=== PATIENT | female | born 1930 | race Caucasian/White ===

== ENCOUNTER 2016-05-23 14:03 | Outpatient (CLI) ==
[2016-05-23 14:12] LABS: BILIRUBIN,URINE Negative (NEGATIVE); KETONES,URINE Negative (NEGATIVE); LEUKOCYTE ESTERASE ,URINE Negative (NEGATIVE); NITRITE,URINE Negative (NEGATIVE); PROTEIN,URINE Negative (NEGATIVE); URINE, BLOOD Negative (NEGATIVE)
[2016-05-23 14:18] LABS: ADD URINE MICROSCOPIC NO
== END 2016-05-23 14:04 | disposition home or self-care (01) ==
LOC: NONPT 14:03
PROVIDERS: ATTEND Family Medicine
DX: R41.0 Disorientation, unspecified (principal)
CPT/HCPCS: 81001

== ENCOUNTER 2016-09-05 10:38 | Outpatient (CLI) ==
[2016-09-05 10:50] LABS: BILIRUBIN,URINE Negative (NEGATIVE); KETONES,URINE Negative (NEGATIVE); LEUKOCYTE ESTERASE ,URINE Negative (NEGATIVE); NITRITE,URINE Negative (NEGATIVE); PROTEIN,URINE Negative (NEGATIVE); URINE, BLOOD Negative (NEGATIVE)
[2016-09-05 10:52] LABS: ADD URINE MICROSCOPIC NO
== END 2016-09-05 10:39 | disposition home or self-care (01) ==
LOC: NONPT 10:38
PROVIDERS: ATTEND Family Medicine
DX: R41.0 Disorientation, unspecified (principal)
CPT/HCPCS: 81001

== ENCOUNTER 2017-04-25 18:30 | Inpatient (IN) ==
[2017-04-25] MEDS ORDERED: DUONEB NEB STA (19:17)
[2017-04-25] MEDS ORDERED: DECADRON 4 MG/ML SDV IM STA (19:17)
--- NOTE | 2017-04-25 19:45 | ED.PDOC ---
General ED Provider: Dr. YENNIFER CARDOZA Chief Complaint: Non-specific Complaint Stated Complaint: Been coughing, congested, sinus drainage, not able get sputum, . Time Seen by Physician: 19:43 Mode of Arrival: Stretcher Information Source: Assisted, EMT Primary Care Provider: ALFONZO MEJIA Nursing and Triage Documentation Reviewed and Agree: Yes Reviewed sepsis parameters & appropriate labs ordered?: No System Inflammatory Response Syndrome: Not Applicable Sepsis Protocol: For patient's 13 years and over: Temp is 96.8 and below OR 101 and greater Pulse >90 BPM Resp >20/minute Acutely Altered Mental Status Are patient's symptoms suggestive of a new infection, such as: -Pneumonia -Skin, Soft Tissue -Endocarditis -UTI -Bone, Joint Infection -Implantable Device -Acute Abdominal Infection -Wound Infection -Meningitis -Blood Stream Catheter Infection -Unknown Respiratory Complaint Exam - Respiratory Complaint/Exam Symptoms Are: Still present Timing: Constant Initial Severity: Mild Current Severity: Mild Location: Chest Character: Reports: Non-productive cough Aggravating: Reports: URI Alleviating: Reports: None Associated Signs and Symptoms: Reports: URI, Nasal congestion, Sinus discomfort. Denies: Rapid breathing, Dyspnea, Fever, Chills, Chest pain, Pleuritic chest pain, Wheezing, Hemoptysis, Dizziness, Calf pain, Calf swelling , Edema, Hoarseness, Vomiting, Sore throat, Weight loss, Decreased oral intake, Increased thirst, Increased appetite, Increased urination History of Healthcare-Acquired Pneumonia: Lives at intermediate Related Surgical History: Reports: None Pulmonary Embolism Risk Factors: None Cardiac Risk Factors: Reports: None Pseudomonas Risk Factors: Reports: None Tuberculosis Risk Factors: Reports: None Status Asthmaticus Risk Factors: Reports: None Home Oxygen Use: No Recent Stress Test: No Recent Echo/LV Function: No Current Antibiotic Use: No Current Asthma Medication Use: No Respiratory Distress: None Inadequate Respiratory Effort: No Dysphagia Present: No Stridor Present: No JVD Present: No Accessory Muscle Use: No Retractions: Not Present Diminished Breath Sounds: Yes Grunting Respirations: No Kussmaul Respirations: No Differential Diagnoses: Pneumonia, Bronchitis, Influenza Review of Systems - Review Of Systems Constitutional: Reports: Malaise, Weakness Eyes: Reports: No symptoms Ears, Nose, Mouth, Throat: Reports: Nose discharge Respiratory: Reports: Cough Cardiac: Reports: No symptoms GI: Reports: No symptoms : Reports: No symptoms Musculoskeletal: Reports: No symptoms Skin: Reports: No symptoms Neurological: Reports: No symptoms Endocrine: Reports: No symptoms Hematologic/Lymphatic: Reports: No symptoms All Other Systems: Reviewed and Negative Past Medical History - Past Medical History Previously Healthy: Yes Endocrine: Reports: None Cardiovascular: Reports: None Respiratory: Reports: None Hematological: Reports: None Gastrointestinal: Reports: None Genitourinary: Reports: CKD Neuro/Psych: Reports: Depression, Dementia Musculoskeletal: Reports: None Cancer: Reports: None Last Menstrual Period: menopause - Surgical History General Surgical History: Reports: None - Family History Family History: Reports: None - Social History Smoking Status: Unknown if ever smoked Hx Substance Use: No Alcohol Screening: None Physical Exam - Physical Exam Appearance: Ill-appearing Ill-appearing: Mild Eyes: MIKEY, EOMI, Conjunctiva clear ENT: Ears normal, Nose normal, Oropharynx normal Respiratory: Breath sounds diminished, Crackles Cardiovascular: RRR, Pulses normal, No rub, No murmur GI/: Soft, Nontender, No masses, Bowel sounds normal, No Organomegaly Musculoskeletal: Normal strength, ROM intact, No edema, No calf tenderness Skin: Warm, Dry, Normal color Neurological: Alert to verbal Psychiatric: Anxious Interpretation - Radiology Interpretation Radiology Interpretation By: Radiologist Radiology Results: Positive Exam Interpreted: CT Scan Critical Care Note - Critical Care Note Total Time (mins): 30 Course - Course Hematology/Chemistry: 04/25/17 19:30 04/25/17 19:30 Orders, Labs, Meds: Lab Review 04/25/17 04/25/17 04/25/17 19:25 19:30 19:30 WBC 6.74 RBC 4.79 Hgb 13.7 Hct 41.0 MCV 85.6 MCH 28.6 MCHC 33.4 RDW Coeff of Lien 13.9 Plt Count 200 Immature Gran % (Auto) 0.4 Neut % (Auto) 62.5 Lymph % (Auto) 27.0 [place] % (Auto) 8.8 Eos % (Auto) 0.6 Baso % (Auto) 0.7 Immature Gran # (Auto) 0.0 Neut # (Auto) 4.2 Lymph # (Auto) 1.8 [place] # (Auto) 0.6 Eos # (Auto) 0.0 Baso # (Auto) 0.1 Sodium 139 Potassium 4.2 Chloride 108 H Carbon Dioxide 19 L Anion Gap 16.2 BUN 22 H Creatinine 0.83 Estimated GFR (MDRD) 65.00 BUN/Creatinine Ratio 26.50 Glucose 120 H Calcium 8.7 Total Bilirubin 0.4 AST 18 ALT 11 L Alkaline Phosphatase 55 Total Protein 6.5 Albumin 3.2 L Globulin 3.3 Albumin/Globulin Ratio 0.97 Influ A Molecular Assay Negative by naat Influ B Molecular Assay Negative by naat Orders Category Date Time Status NEBULIZER TREATMENT Stat CARDIO 04/25/17 19:17 Completed CBC W/ AUTO DIFF Stat LAB 04/25/17 19:30 Completed COMPREHENSIVE METABOLIC PANEL Stat LAB 04/25/17 19:30 Completed FLU A/B MOLECULAR Stat LAB 04/25/17 19:25 Completed Dexamethasone 4 mg/ml Inj [Decadron 4 mg/ml Sdv] MEDS 04/25/17 19:17 Discontinued 4 mg IM ONCE STA Ipratropium/Albuterol Neb [Duoneb] MEDS 04/25/17 19:17 Discontinued 1 vial NEB ONCE STA CT CHEST W/O CONTRAST Stat RADS 04/25/17 19:17 Completed Medications Discontinued Medications Generic Name Dose Route Start Last Admin Trade Name Freq PRN Reason Stop Dose Admin Albuterol/Ipratropium 1 vial 04/25/17 19:17 04/25/17 20:17 Duoneb NEB 04/25/17 19:18 1 vial ONCE STA Administration Dexamethasone Sodium Phosphate 4 mg 04/25/17 19:17 04/25/17 19:27 Decadron 4 Mg/Ml Sdv IM 04/25/17 19:18 4 mg ONCE STA Administration Vital Signs: Temp Pulse Resp BP Pulse Ox 04/25/17 18:31 98.5 F 84 20 115/52 L 97 Departure - Departure Time of Disposition: 20:42 Disposition: ADMITTED INPATIENT Discharge Problem: Pneumonia Qualifiers: Pneumonia type: due to unspecified organism Laterality: bilateral Lung location : lower lobe of lung Qualified Code(s): J18.9 - Pneumonia, unspecified organism Instructions: Community Acquired Pneumonia (ED) Condition: Stable Pt referred to PMD for follow-up: No IPMP verified?: No Allergies/Adverse Reactions: Allergies No Known Allergies Allergy (Unverified 04/25/17 18:42) Home Medications: Ambulatory Orders Acetaminophen [Acetaminophen ER] 650 mg PO Q6HR PRN 04/25/17 Buspirone HCl 5 mg PO BID 04/25/17 Citalopram Hydrobromide [Celexa] 10 mg PO DAILY 04/25/17 Donepezil HCl [Aricept] 10 mg PO BEDTIME 04/25/17 Gentamicin Sulfate Opth [Gentak Opth Eva] 2 drop OP BEDTIME 04/25/17 Guaifenesin/Dextromethorphan [Mucinex Dm ER 1,200-60 mg Tab] 1 each PO Q12HR PRN 04/25/17 Loperamide HCl [Imodium A-D] 2 mg PO Q4HR PRN 04/25/17 Memantine HCl [Namenda] 10 mg PO BID 04/25/17 Promethazine HCl [Phenergan Supp] 25 mg RC Q6H PRN 04/25/17 Trolamine Salicylate/Aloe Vera [Aspercreme 10% Cream] 35.4 gm TP Q4HR PRN Disposition Discussed With: Patient, Family
--- NOTE | 2017-04-25 20:12 | CT ---
EXAM: CT of the chest without contrast. HISTORY: Cough. PROCEDURE: Contiguous axial CT images of the chest without contrast with coronal and sagittal reform ats. FINDINGS: The heart is within normal limits in size. The thoracic aorta is within normal limits in d iameter. There are calcified hilar lymph nodes. There are minimal secretions in the trachea. There is minimal bilateral atelectasis and/or pneumonia. There are degenerative changes in the spine. The adrenal glands and visualized portion of the liver are normal in appearance. There is a fluid density cyst in the right kidney. Impression: Minimal bilateral atelectasis and/or pneumonia. Minimal secretions in the trachea.
[2017-04-25] MEDS ORDERED: VANCOMYCIN 1,000 MG in SODIUM CHLORIDE 200 ML IV STA (20:54)
[2017-04-25] MEDS ORDERED: [UNRECOGNIZED DRUG - OTHER] PO PRN (20:55)
[2017-04-25] MEDS ORDERED: DEXTROMETHORPHAN PO PRN (20:55)
[2017-04-25] MEDS ORDERED: GUAIFENESIN PO PRN (20:55)
[2017-04-25] MEDS ORDERED: GENTAK OPTH SOL OP SCH (21:00)
[2017-04-25] MEDS ORDERED: ROCEPHIN 1 GM in SODIUM CHLORIDE 50 ML IV SCH (21:00)
[2017-04-25] MEDS ORDERED: NON-FORMULARY MEDICATION (Buspirone Hcl [Buspirone Hcl] 5 MG) PO SCH (21:00)
[2017-04-25] MEDS ORDERED: SODIUM CHLORIDE 1,000 ML IV SCH (21:00)
[2017-04-25] MEDS ORDERED: VANCOMYCIN ONE (21:34)
[2017-04-25 22:18] VITALS: BMI 20.6
[2017-04-25] MEDS ORDERED: BUSPAR ONE (22:40)
[2017-04-25] MEDS: NAMENDA PO SCH (22:44)
[2017-04-25] MEDS: ARICEPT PO SCH (22:45)
[2017-04-25] MEDS: DUONEB NEB SCH (23:09)
[2017-04-25] MEDS ORDERED: ROCEPHIN ONE (23:55)
[2017-04-26] MEDS: DUONEB NEB SCH ×4 (05:17→22:56)
[2017-04-26] MEDS ORDERED: MUCINEX DM ER 600-30 MG TABLET PO PRN (07:46)
[2017-04-26] MEDS: BUSPAR PO SCH ×2 (08:37→20:08)
[2017-04-26] MEDS: CELEXA PO SCH (08:37)
[2017-04-26] MEDS: LOVENOX SUBCUT SCH ×2 (08:38→08:52)
[2017-04-26] MEDS: SODIUM CHLORIDE 1,000 ML IV SCH ×2 (08:38→16:56)
[2017-04-26] MEDS: NAMENDA PO SCH ×2 (08:39→20:08)
[2017-04-26] MEDS: XANAX PO SCH ×2 (08:42→20:08)
[2017-04-26] MEDS ORDERED: NON-FORMULARY MEDICATION (Citalopram Hydrobromide [Celexa] 10 MG) PO SCH (09:00)
[2017-04-26] MEDS: ARICEPT PO SCH (20:08)
[2017-04-26] MEDS: GENTAK OPTH SOL OP SCH (20:12)
[2017-04-26] MEDS: ROCEPHIN 1 GM in SODIUM CHLORIDE 50 ML IV SCH (20:12)
[2017-04-27] MEDS: DUONEB NEB SCH ×3 (05:06→17:10)
[2017-04-27] MEDS: XANAX PO SCH (09:12)
[2017-04-27] MEDS: CELEXA PO SCH (09:12)
[2017-04-27] MEDS: NAMENDA PO SCH ×2 (09:12→21:22)
[2017-04-27] MEDS: BUSPAR PO SCH ×2 (09:12→21:21)
[2017-04-27] MEDS: LOVENOX SUBCUT SCH (09:13)
[2017-04-27] MEDS: VANCOMYCIN 1,000 MG in SODIUM CHLORIDE 200 ML IV SCH (14:16)
[2017-04-27] MEDS: SODIUM CHLORIDE 1,000 ML IV SCH (17:18)
[2017-04-27] MEDS: ARICEPT PO SCH (21:21)
[2017-04-27] MEDS: ROCEPHIN 1 GM in SODIUM CHLORIDE 50 ML IV SCH (21:21)
[2017-04-27] MEDS: GENTAK OPTH SOL OP SCH (21:22)
[2017-04-28] MEDS: DUONEB NEB SCH ×4 (00:03→20:45)
[2017-04-28] MEDS: NAMENDA PO SCH ×2 (08:44→21:16)
[2017-04-28] MEDS: BUSPAR PO SCH ×2 (08:44→21:16)
[2017-04-28] MEDS: CELEXA PO SCH (08:44)
[2017-04-28] MEDS: LOVENOX SUBCUT SCH (08:45)
--- NOTE | 2017-04-28 10:26 | DI ---
EXAM: Single view of the chest. History: Follow-up pneumonia Comparison: Chest CT 04/25/2017 Findings: Heart is mildly enlarged. Elevation of the right hemidiaphragm. Atherosclerotic vascular calcifications. Diffuse bronchial wall thickening. Right medial lower lung subsegmental atelectasis or pneumonia. No appreciable pleural fluid and no pneumothorax. No acute osseous abnormalities. Impression: 2. Right medial lower lung subsegmental atelectasis or pneumonia. 2. Mild cardiomegaly. 3. Diffuse bronchial wall thickening
[2017-04-28] MEDS: VANCOMYCIN 1,000 MG in SODIUM CHLORIDE 200 ML IV SCH (11:07)
[2017-04-28] MEDS: ZYPREXA PO SCH (14:31)
[2017-04-28] MEDS: ARICEPT PO SCH (21:16)
[2017-04-28] MEDS: GENTAK OPTH SOL OP SCH (21:17)
[2017-04-28] MEDS: ROCEPHIN 1 GM in SODIUM CHLORIDE 50 ML IV SCH ×2 (21:18→21:20)
[2017-04-29] MEDS: ROCEPHIN 1 GM in SODIUM CHLORIDE 50 ML IV SCH ×2 (00:23→21:10)
[2017-04-29] MEDS: DUONEB NEB SCH ×4 (06:11→20:42)
[2017-04-29] MEDS: VANCOMYCIN 1,000 MG in SODIUM CHLORIDE 200 ML IV SCH (08:59)
[2017-04-29] MEDS: ZYPREXA PO SCH (08:59)
[2017-04-29] MEDS: NAMENDA PO SCH ×2 (09:00→21:10)
[2017-04-29] MEDS: CELEXA PO SCH (09:00)
[2017-04-29] MEDS: BUSPAR PO SCH ×2 (09:00→21:10)
[2017-04-29] MEDS: LOVENOX SUBCUT SCH (09:02)
--- NOTE | 2017-04-29 11:45 | PN ---
DATE OF SERVICE: 04/28/17 SUBJECTIVE: The patient was admitted with the bibasilar pneumonia, still coughing and congestion. The patient is very combative because of the severe Alzheimer's Dementia. She pulled out the IV line and doesn't want it to be inserted again. The patient's both sons Kedar is here and discussed her case in detail and in depth about the possible treatment plan and everything. Chest x-ray from today again showed the right medial lobe pneumonia. They were opposing us give the patient any Xanax to sedate the patient. When given the option of the Zyprexa, one the son's is a doctor and they agreed to start on the Zyprexa. We will be starting the Zyprexa and try to get an IV line and start the antibiotics. REVIEW OF SYSTEMS: CONSTITUTIONAL: No fever, no chills. HEENT: Normal. ENDOCRINE: No weight gain, no weight loss. CVS: No angina symptoms. No CHF symptoms. No palpitations. No atypical chest pain for CAD. No shortness of breath. No PND, no orthopnea. RESPIRATORY: No cough, no hemoptysis. GI: No nausea, no vomiting. No abdominal pain. : No hematuria. No polyuria. MUSCULOSKELETAL: No joint swelling. PSYCHIATRIC: Not anxious. No depression. No suicidal thoughts. No homicidal thoughts. SKIN: Intact. No rash. PHYSICAL EXAMINATION: V/S: Blood pressure 137/70, respiratory rate 16, heart rate 78, temperature 98.5 with saturation 93%. HEENT: Normocephalic, atraumatic. Mucosa dry. Pallor positive. No icterus. NECK: Supple. No JVD, no carotid bruit. No lymphadenopathy. LUNGS: Decreased and basilar crackles right more than the left. Clear to auscultation. No rales or rhonchi. HEART: S1, S2 normal. No S3. No murmur, gallop or regurgitation. ABDOMEN: Soft, nontender. Bowel sounds active. No rigidity. No rebound or guarding. No CVA tenderness. EXTREMITIES: No pedal edema. No clubbing or cyanosis MUSCULOSKELETAL: No joint swelling. NEUROLOGIC: Awake, alert, not oriented. No focal deficit. Sweaty. Sometimes she gets combative. LYMPHATIC: No lymph nodes palpable. SKIN: Intact. LABS: Sodium 137, potassium 3.9, chloride 109, bicarb 24, BUN 12, creatinine 0.66, glucose 115, WBC 8.91. hgb 13.3, hct 39.5, plt count 185. ASSESSMENT: 1. Right medial lobe pneumonia, health care facility acquired 2. Alzheimer's Dementia with behavioral changes 3. Depression PLAN: 1. Please insert IV line 2. Zyprexa 10mg PO daily 3. Rocephin and Vancomycin after getting the IV line 4. Continue with DUO NEBS TIME SPENT: More than 35 minutes MTDD
--- NOTE | 2017-04-29 11:51 | PN ---
DATE OF SERVICE: 04/27/17 SUBJECTIVE: The patient was admitted with bilateral basilar pneumonia, facility acquired pneumonia. The patient has been having some diarrhea, no nausea or vomiting. Her communication is very limited because of the severe Alzheimer's Dementia. REVIEW OF SYSTEMS: CONSTITUTIONAL: No fever, no chills. HEENT: Normal. ENDOCRINE: No weight gain, no weight loss. CVS: No angina symptoms. No CHF symptoms. No palpitations. No atypical chest pain for CAD. No shortness of breath. No PND, no orthopnea. RESPIRATORY: No cough, no hemoptysis. GI: No nausea, no vomiting. No abdominal pain. : No hematuria. No polyuria. MUSCULOSKELETAL: No joint swelling. PSYCHIATRIC: Not anxious. No depression. No suicidal thoughts. No homicidal thoughts. SKIN: Intact. No rash. PHYSICAL EXAMINATION: V/S: Blood pressure 158/69, respiratory rate 18, heart rate 73, temperature 98.4 with saturation is 92%. HEENT: Normocephalic, atraumatic. Mucosa dry. NECK: Supple. No JVD, no carotid bruit. No lymphadenopathy. LUNGS: Decreased and basilar crackles. Clear to auscultation. No rales or rhonchi. HEART: S1, S2 normal. No S3. No murmur, gallop or regurgitation. ABDOMEN: Soft, nontender. Bowel sounds active. No rigidity. No rebound or guarding. No CVA tenderness. EXTREMITIES: No pedal edema. No clubbing or cyanosis MUSCULOSKELETAL: No joint swelling. NEUROLOGIC: Awake, alert, not oriented to time, place and purpose. No focal deficit. The patient always tries to sleep in the position curled up. LYMPHATIC: No lymph nodes palpable. SKIN: Intact. LABS: Sodium 137, potassium 3.9, chloride 109, bicarb 24, BUN 12, creatinine 0.66,WBC 8.91, hgb 13.3, hct 39.5, plt count 185. ASSESSMENT: 1. Bibasilar pneumonia, health care facility acquired 2. Diarrhea, will rule out C-Diff, culture been taken 3. Alzheimer's Dementia with behavioral changes 4. Depression PLAN: 1. Continue IV fluids 2. Continue Xanax twice a day 3. Rocephin 1 gram daily 4. Lovenox for the DVT prophylaxis 5. DUO NEBS 6. Namenda 7. Vancomycin 1 gram daily. TIME SPENT: More than 35 minutes MTDD
[2017-04-29] MEDS ORDERED: DECADRON 4 MG/ML SDV IVP STA (13:04)
[2017-04-29] MEDS: SODIUM CHLORIDE 1,000 ML IV SCH (13:20)
[2017-04-29] MEDS: ARICEPT PO SCH (21:10)
[2017-04-29] MEDS: GENTAK OPTH SOL OP SCH (21:11)
[2017-04-30] MEDS: DUONEB NEB SCH ×4 (05:11→21:49)
[2017-04-30] MEDS: BUSPAR PO SCH ×3 (09:15→20:51)
[2017-04-30] MEDS: CELEXA PO SCH (09:15)
[2017-04-30] MEDS: ZYPREXA PO SCH (09:15)
[2017-04-30] MEDS: NAMENDA PO SCH ×3 (09:16→20:51)
[2017-04-30] MEDS: LOVENOX SUBCUT SCH (09:16)
[2017-04-30] MEDS: VANCOMYCIN 1 GM in SODIUM CHLORIDE 250 ML IV SCH (09:20)
[2017-04-30] MEDS: SODIUM CHLORIDE 1,000 ML IV SCH (16:59)
[2017-04-30 18:38] VITALS: BP 138/69; TEMP 97.9
[2017-04-30] MEDS: ROCEPHIN 1 GM in SODIUM CHLORIDE 50 ML IV SCH (20:27)
[2017-04-30] MEDS: GENTAK OPTH SOL OP SCH ×2 (20:39→20:50)
[2017-04-30] MEDS: ARICEPT PO SCH ×2 (20:39→20:49)
[2017-05-01] MEDS: DUONEB NEB SCH ×3 (05:13→14:15)
[2017-05-01] MEDS: ZYPREXA PO SCH (08:59)
[2017-05-01] MEDS: LOVENOX SUBCUT SCH (09:00)
[2017-05-01] MEDS: CELEXA PO SCH (09:00)
[2017-05-01] MEDS: BUSPAR PO SCH (09:00)
[2017-05-01] MEDS: NAMENDA PO SCH (09:00)
[2017-05-01] MEDS: VANCOMYCIN 1 GM in SODIUM CHLORIDE 250 ML IV SCH (09:18)
--- NOTE | 2017-05-01 10:38 | PN ---
DATE OF SERVICE: 04/29/17 SUBJECTIVE: The patient is admitted with right bibasilar pneumonia. Repeat chest x-ray showed right mid lobe pneumonia. The patient was refusing to get IV line until yesterday and finally got the IV site yesterday evening and started on IV Vancomycin and Rocephin. She is getting breathing treatments, still having some coughing once in a while. The patient started on Zyprexa and still having agitation and hitting the nurses sometimes. REVIEW OF SYSTEMS: CONSTITUTIONAL: No fever, no chills. HEENT: Normal. ENDOCRINE: No weight gain, no weight loss. CVS: No angina symptoms. No CHF symptoms. No palpitations. No atypical chest pain for CAD. No shortness of breath. No PND, no orthopnea. RESPIRATORY: Cough is present. No hemoptysis. GI: No nausea, no vomiting. No abdominal pain. : No hematuria. No polyuria. MUSCULOSKELETAL: No joint swelling. PSYCHIATRIC: Not anxious. No depression. No suicidal thoughts. No homicidal thoughts. SKIN: Intact. No rash. PHYSICAL EXAMINATION: V/S: BP 156/69, respiratory rate 18, heart rate 71, temperature 98.1, saturation 93. HEENT: Normocephalic, atraumatic. Mucosa dry. NECK: Supple. No JVD, no carotid bruit. No lymphadenopathy. LUNGS: Decreased with basilar crackles. Clear to auscultation. No rales or rhonchi. HEART: S1, S2 normal. No S3. No murmur, gallop or regurgitation. ABDOMEN: Soft, nontender. Bowel sounds active. No rigidity. No rebound or guarding. No CVA tenderness. EXTREMITIES: No cyanosis, clubbing or pedal edema. No clubbing or cyanosis MUSCULOSKELETAL: No joint swelling. NEUROLOGIC: Awake, alert, but not oriented to time, place or person. She, as usual, lays in a position. No focal deficit. LYMPHATIC: No lymph nodes palpable. SKIN: Intact. LABS: White count 8.91, hemoglobin 13.3, hematocrit 39.5, platelet count 185. Sodium 137, potassium 3.9, chloride 104, bicarb 24, BUN 12, creatinine 0.66, glucose 115. ASSESSMENT: 1. RIGHT MIDDLE LOBE PNEUMONIA 2. ALZHEIMER'S DEMENTIA WITH BEHAVIORAL CHANGES 3. OSTEOARTHRITIS 4. DEPRESSION PLAN: 1. Continue Zyprexa 2. Vancomycin, Rocephin, Duonebs 3. Will give 1 cc Decadron TIME SPENT: More than 35 minutes MTDD
--- NOTE | 2017-05-22 10:49 | PN ---
DATE OF SERVICE: 04/26/17 SUBJECTIVE: The patient was admitted with bilateral basilar pneumonia. Still cough and congestion and not able to bring any phlegm. The patient is not verbal secondary to the severe Alzheimer's dementia. PHYSICAL EXAMINATION: V/S: Blood pressure 117/66, respiratory rate 20, heart rate 65, temperature 97.8 , saturation 95 on 2 liters. HEENT: Normocephalic, atraumatic. Mucosa dry. NECK: Supple. No JVD, no carotid bruit. No lymphadenopathy. LUNGS: Decreased and basilar crackles. No rales or rhonchi. HEART: S1, S2 normal. No S3. No murmur, gallop or regurgitation. ABDOMEN: Soft, nontender. Bowel sounds active. No rigidity. No rebound or guarding. No CVA tenderness. EXTREMITIES: No pedal edema. No clubbing or cyanosis MUSCULOSKELETAL: No joint swelling. NEUROLOGIC: Awake, alert, but not oriented. No focal deficit. LYMPHATIC: No lymph nodes palpable. SKIN: Intact. LABS:White count is 4.77, hemoglobin 13.5, hematocrit 41.2, platelet count 196, sodium 141, potassium 4.6, chloride 107, bicarb 25, BUN 18, creatinine 0.76, glucose 149. ASSESSMENT: 1. BIBASILAR PNEUMONIA 2. DEHYDRATION, WHICH IS BETTER 3. ALZHEIMER'S DEMENTIA WITH BEHAVIOR CHANGES 4. DEPRESSION PLAN: 1. Continue the Vancomycin,Rocephin. 2. Lovenox for the DVT prophylaxis. 3. Cough syrup. 4. DuoNebs. 5. IV fluids at 40 ml per hour. TIME SPENT: More than 35 minutes MTDD
--- NOTE | 2017-05-27 09:40 | PN ---
DATE OF SERVICE: 04/30/17 SUBJECTIVE: 86 year old patient with a severe Alzheimer's dementia with behavioral changes was admitted with pneumonia. Repeat chest x-ray still shows the right middle lobe pneumonia. Zyprexa was started for the behavior changes. As of today, right now, the patient is totally uncooperative. The patient's caregiver is in the room and she also says that she has not been right today. When I tried to examine the patient she started moving me away and doesn't want me to examine her. The caregiver came and she was holding the hands while I was examining the patient. PHYSICAL EXAMINATION: V/S: Blood pressure 139/106, respiratory rate 18, heart rate 69, temperature 97.8, saturation 96 on room air. HEENT: Normocephalic, atraumatic. Mucosa dry. NECK: Supple. No JVD, no carotid bruit. No lymphadenopathy. LUNGS: Bilateral air entry is decreased and clear. No rales or rhonchi. HEART: S1, S2 normal. No S3. No murmur, gallop or regurgitation. ABDOMEN: Soft, nontender. Bowel sounds active. No rigidity. No rebound or guarding. No CVA tenderness. EXTREMITIES: No pedal edema. No clubbing or cyanosis MUSCULOSKELETAL: Grossly intact. NEUROLOGIC: Awake, alert, but not oriented to time, place and person. No focal deficit. LYMPHATIC: No lymph nodes palpable. SKIN: Intact and dry. LABS: White count is 7.77, hemoglobin 12.7, hematocrit 36.9, platelet count 249 , sodium 144, potassium 3.7, chloride 112, bicarb 23, BUN 13, creatinine 0.66. ASSESSMENT: 1. RIGHT MIDDLE LOBE PNEUMONIA 2. ALZHEIMER'S DEMENTIA WITH BEHAVIOR CHANGES 3. DEPRESSION 4. OSTEOARTHRITIS PLAN: 1. Continue Rocephin, Vancomycin, DuoNeb, Zyprexa. 2. Continue to monitor the Vancomycin levels. 3. Lovenox was given for the DVT prophylaxis. The patient's son, Kedar, does not want to send her on Zyprexa back to the alf. I had a lengthy discussion about the patient's behavioral changes and the need for those medications, but Kedar thinks that will make her groggy and he does not want those medications when the patient goes back to the alf, which has been notified to the nurses. TIME SPENT: More than 35 minutes MTDD
--- NOTE | 2017-05-27 10:26 | DS ---
DATE OF SERVICE: 05/01/17 FINAL DIAGNOSIS: 1. HEALTHCARE FACILITY ACQUIRED PNEUMONIA, RIGHT LOWER LOBE AND RIGHT MIDDLE LOBE 2. ALZHEIMER'S DEMENTIA WITH BEHAVIORAL CHANGES 3. DEPRESSION 4. HISTORY OF CYSTITIS PLAN: 1. Discharge the patient back to the detention. 2. New medications: Keflex 500 mg twice a day for five days Prednisone 10 mg twice a day for five days DuoNeb twice a day Tessalon Perles 100 mg three times a day 3. Discontinue the Zyprexa. 4. Follow up with Dr. King in the detention. 5. Resume all medications as per the reconciliation. 6. Diet: Regular diet. 7. Activity: Can participate in the detention activities. 8. Continue home medications of Imodium prn, Tylenol prn, Tessalon Perles, Buspar, Celexa, Aricept, Namenda, Prednisone. DISEASE SPECIFIC EDUCATION: About the pneumonia, pneumonia vaccination were discussed, verbalized understanding. HOSPITAL COURSE: Angela Joshi, who is a 86 year old female, who was brought to the emergency room from the [facility] as the patient was not feeling good. Coughing with congestion. Not able to get up the phlegm. Checked for flu. The patient had a low grade temperature and loose stool on the day of admission. Her cheeks were flushed. She was combative, yelling. On examination, blood pressure was 115/52. White count was normal. Chemistry showed the elevated BUN at 22. Serology negative. CT of the chest showed bibasilar atelectasis, pneumonia. With the clinical coughing and the atelectasis and basilar pneumonia, she was admitted to the hospital with IV antibiotics, Vancomycin and Rocephin, DuoNebs. A dose of Dexamethasone was given. Lovenox for the DVT prophylaxis given. The patient was slightly combative because of the dementia. Xanax was given, which was not liked by the family as it was making the patient groggy, so it was stopped. The patient did have combative episodes, two to three with nurses and the caregivers there. She did not want to be examined and then Zyprexa was added. The patient was slightly calm. The patient did pull at the IV site. Antibiotics of Vancomycin and Rocephin was not given for one day. On the final day we got the access on the foot and started her antibiotics. The patient's sons are really very much caring and supportive and they were there most of the time and answered all of the questions. The patient's repeat x-ray showed right middle lobe pneumonia. It was gradually getting better and she did not have any complications. At that time the discharge plan was made. Family requested strictly not to send the patient on the Zyprexa as the patient's family does not want it. TIME SPENT: MORE THAN 65 MINUTES ANA MARÍA
== END 2017-05-01 15:02 | disposition home or self-care (01) | DRG 194 ==
LOC: ED 18:30 → MEDSURG A 21:19
PROVIDERS: ADMIT Emergency Medicine; ATTEND Emergency Medicine
DX: J18.9 Pneumonia, unspecified organism (principal); F02.81 Dementia in other diseases classified elsewhere, unspecified severity, with behavioral disturbance; J98.11 Atelectasis; G30.1 Alzheimer's disease with late onset; F32.9 Major depressive disorder, single episode, unspecified; E86.0 Dehydration; R19.7 Diarrhea, unspecified; M19.90 Unspecified osteoarthritis, unspecified site; Y95 Nosocomial condition; Y92.129 Unspecified place in nursing home as the place of occurrence of the external cause; Z87.448 Personal history of other diseases of urinary system; Z79.899 Other long term (current) drug therapy
CPT/HCPCS: 36415; 80053; 80202; 82550; 84484; 85007; 85025; 87081; 87493; 87502; 94640; 96365; 96372; 97802; 99284

== ENCOUNTER 2018-05-17 07:03 | Outpatient (CLI) | payer OTHER ==
[2018-05-17 16:47] VITALS: BMI 20.5
== END 2018-05-17 07:10 | disposition critical access hospital (66) ==
LOC: AMBL 07:03
PROVIDERS: ATTEND Emergency Medicine
DX: R11.2 Nausea with vomiting, unspecified (principal); R19.7 Diarrhea, unspecified

== ENCOUNTER 2018-05-17 07:39 | Inpatient (IN) | payer OTHER ==
--- NOTE | 2018-05-17 07:58 | ED.PDOC ---
General ED Provider: Dr. STEPHY HALL Chief Complaint: Diarrhea Stated Complaint: this [facility] patient is incontinent of urine and stools.Weares diaper.Today at AM when changing her diaper they noticed loose BM.Afgebrile.Patient suffers from dementia.Is combative,Rests in bed with contracted legs..Initial exam dos not show severe prostration,fever,No nausea or vomting.Examination is limited due to patients combativness and physical opposition to any touch,palpation,auscultation or manipulation.Would not follow verbal comands,pleading for cooperation.Keeps her eyes closed throught the process and at all times. Time Seen by Physician: 07:58 Mode of Arrival: Ambulance Information Source: [facility] Exam Limitations: Clinical condition, Dementia Primary Care Provider: YENNIFER ESPINOZA Referred to ED by: Other Nursing and Triage Documentation Reviewed and Agree: Yes Does patient meet sepsis criteria?: No System Inflammatory Response Syndrome: Not Applicable Sepsis Protocol: For patient's 13 years and over: Temp is 96.8 and below OR 101 and greater Pulse >90 BPM Resp >20/minute Acutely Altered Mental Status Are patient's symptoms suggestive of a new infection, such as: -Pneumonia -Skin, Soft Tissue -Endocarditis -UTI -Bone, Joint Infection -Implantable Device -Acute Abdominal Infection -Wound Infection -Meningitis -Blood Stream Catheter Infection -Unknown Review of Systems - Review Of Systems Constitutional: Reports: Chills, Fever Eyes: Reports: No symptoms, Other Ears, Nose, Mouth, Throat: Reports: No symptoms Respiratory: Reports: No symptoms Cardiac: Reports: No symptoms GI: Reports: Diarrhea, Poor fluid intake : Reports: Incontinence Musculoskeletal: Reports: Muscle stiffness Neurological: Reports: Cognitive dysfunction, Weakness Endocrine: Reports: No symptoms Hematologic/Lymphatic: Reports: No symptoms All Other Systems: Reviewed and Negative Past Medical History - Past Medical History Previously Healthy: Yes Endocrine: Reports: None Cardiovascular: Reports: None Respiratory: Reports: None Hematological: Reports: None Gastrointestinal: Reports: None Genitourinary: Reports: CKD Neuro/Psych: Reports: Depression, Dementia Musculoskeletal: Reports: None Cancer: Reports: None - Surgical History General Surgical History: Reports: None - Family History Family History: Reports: None - Social History Smoking Status: Unknown if ever smoked Hx Substance Use: No Alcohol Screening: None Physical Exam - Physical Exam Appearance: Ill-appearing Ill-appearing: Moderate Pain Distress: None Eyes: MIKEY ENT: Ears normal Neck: Supple Respiratory: Airway patent Cardiovascular: RRR GI/: Bowel sounds hyperactive Musculoskeletal: No edema Skin: Warm, Dry Neurological: Disoriented, Alert to pain Psychiatric: Depressed Re-Evaluation - Re-Evaluation Time of Re-Evaluation: 11:28 (CT colitis,poss pneum.) Status: Unchanged Vital Signs Stable: Yes Pain Level: none Appearance: NAD Lungs: Clear Skin: Warm and Dry Neuro: Other CV: RRR Additional Comments: Cognitive deficiency Critical Care Note - Critical Care Note Total Time (mins): 0 Course - Course Hematology/Chemistry: 05/17/18 08:30 05/17/18 08:30 Orders, Labs, Meds: Lab Review 05/17/18 05/17/18 05/17/18 08:30 08:30 10:20 WBC 8.94 RBC 5.25 Hgb 14.7 Hct 44.8 MCV 85.3 MCH 28.0 MCHC 32.8 RDW Coeff of Lien 13.7 Plt Count 214 Immature Gran % (Auto) 0.3 Neut % (Auto) 91.4 Lymph % (Auto) 5.0 L [place] % (Auto) 3.1 Eos % (Auto) 0.0 Baso % (Auto) 0.2 Immature Gran # (Auto) 0.0 Neut # (Auto) 8.2 H Lymph # (Auto) 0.5 L [place] # (Auto) 0.3 L Eos # (Auto) 0.0 Baso # (Auto) 0.0 Sodium 142.0 Potassium 4.39 Chloride 109.4 H Carbon Dioxide 23.5 Anion Gap 13.49 BUN 27.8 H Creatinine 0.75 Estimated GFR (MDRD) 73.00 BUN/Creatinine Ratio 37.06 Glucose 147.0 H Calcium 8.99 Total Bilirubin 0.83 AST 23.2 ALT 16.4 Alkaline Phosphatase 66.6 NT-Pro-B Natriuret Pep 355.000 H Total Protein 7.06 Albumin 4.32 Globulin 2.74 Albumin/Globulin Ratio 1.57 Urine Color Yellow Urine Clarity Clear Urine pH 5.0 Ur Specific [place] 1.025 Urine Protein Trace Urine Glucose (UA) Negative Urine Ketones Negative Urine Blood 2+ Urine Nitrite Negative Urine Bilirubin Negative Urine Urobilinogen 0.2 Ur Leukocyte Esterase Trace Urine Microscopic RBC 2-5 Urine Microscopic WBC 5-10 Ur Squamous Epith Cells 10-20 Urine Bacteria Trace Orders Category Date Time Status C-DIFF MONITORING (NURSING) BID CARE 05/17/18 08:27 Active NPO REMINDER: IMAGING ONCE CARE 05/17/18 08:54 Completed IV [ED IV/MEDIPORT/POWERPORT] .ONCE EMERGENCY 05/17/18 08:12 Active CBC W/ AUTO DIFF Stat LAB 05/17/18 08:30 Completed CMP [COMPREHENSIVE METABOLIC PANEL] Stat LAB 05/17/18 08:30 Completed NT-PROBNP Stat LAB 05/17/18 08:30 Completed STOOL CULTURE Stat LAB 05/17/18 Uncollected URINALYSIS C & S IF INDICATED Stat LAB 05/17/18 10:20 Completed URINE CULTURE Stat LAB 05/17/18 10:00 Received cdiff [C. DIFFICILE] Routine LAB 05/17/18 08:26 Uncollected 0.9 % Sodium Chloride [Saline Flush] MEDS 05/17/18 08:12 Active 1 syr IVF PRN PRN Sodium Chloride 0.9% [Sodium Chloride] 500 ml MEDS 05/17/18 11:06 Active IV 100 mls/hr CT ABDOMEN/PELVIS WO CONTRAST Stat RADS 05/17/18 08:53 Completed Medications Generic Name Dose Route Start Last Admin Trade Name Freq PRN Reason Stop Dose Admin Sodium Chloride 500 mls @ 100 mls/hr 05/17/18 11:06 05/17/18 11:29 Sodium Chloride IV 05/17/18 16:05 100 mls/hr .Q5H STA Administration Sodium Chloride 1 syr 05/17/18 08:12 Saline Flush IVF PRN PRN To flush IV Vital Signs: Temp Pulse Resp BP Pulse Ox 05/17/18 08:08 97.5 F L 92 H 18 137/70 93 L Departure - Departure Time of Disposition: 11:34 Disposition: ADMITTED INPATIENT Discharge Problem: Admission for fitting of Port-A-Cath, Dehydration, mild, Atelectasis, Colitis, enteritis, and gastroenteritis of presumed infectious origin Instructions: Diverticulosis (ED) Condition: Fair Pt referred to PMD for follow-up: Yes IPMP verified?: No Allergies/Adverse Reactions: Allergies No Known Allergies Allergy (Unverified 04/25/17 18:42) Home Medications: Ambulatory Orders Acetaminophen [Acetaminophen ER] 650 mg PO Q6HR PRN 04/25/17 Buspirone HCl 5 mg PO BID 04/25/17 Citalopram Hydrobromide [Celexa] 10 mg PO DAILY 04/25/17 Donepezil HCl [Aricept] 10 mg PO BEDTIME 04/25/17 Gentamicin Sulfate Opth [Gentak Opth Eva] 2 drop OP BEDTIME 04/25/17 Loperamide HCl [Imodium A-D] 2 mg PO Q4HR PRN 04/25/17 Memantine HCl [Namenda] 10 mg PO BID 04/25/17 Promethazine HCl [Phenergan Supp] 25 mg RC Q6H PRN 04/25/17 Trolamine Salicylate/Aloe Vera [Aspercreme 10% Cream] 35.4 gm TP Q4HR PRN Ipratropium/Albuterol Neb [Duoneb] 1 vial NEB RTBID #1 vial.neb 05/01/17 Disposition Discussed With: Patient, Family
[2018-05-17] MEDS ORDERED: POTASSIUM CHLORIDE 10 MEQ VIAL 10 MEQ in SODIUM CHLORIDE 1,000 ML IV STA (08:12)
--- NOTE | 2018-05-17 10:05 | CT ---
EXAM: CT abdomen pelvis without contrast HISTORY: Diarrhea, incontinence COMPARISON: None TECHNIQUE: CT abdomen pelvis performed without intravenous contrast. Coronal and sagittal reformatt ed images obtained. FINDINGS: Motion artifact and lack of intravenous contrast limit evaluation. Mild bibasilar and/or i nfiltrate. No free air. No acute abnormalities of the bones. Bilateral pars defects L5 with 4 mm a nterolisthesis of L5 on S1. There is also 8 mm anterolisthesis of L4 on L5. The heart normal in siz e. Small pericardial effusion. Evaluation organ parenchyma limited without contrast. Liver is enla rged. There are gallstones. The pancreas unremarkable. Granulomas calcification in the spleen. Sp anum otherwise unremarkable. Adrenals unremarkable. No hydronephrosis or nephrolithiasis. Right re nal cyst measures 5.3 cm. Bladder only minimally distended and poorly very, grossly unremarkable. U terus unremarkable. Aorta normal in caliber. Moderate atherosclerosis. Moderate hiatal hernia. No dilated loops small bowel. Scattered fluid-filled loops small bowel may represent mild enteritis. Appendix partially visualized with visualized portion appearing normal. Cystic lesion right ovary/ad nexa measures 2.3 cm. Questionable mild stranding densities adjacent to the left colon representing questionable colitis. Fluid in the colon. Mild colonic diverticulosis. Small fat-containing periumbi lical hernia. IMPRESSION: 1. Possible mild enteritis. Questionable mild stranding densities adjacent to the left colon repres enting questionable colitis. Fluid in the colon, consistent with history of diarrhea and may relate to enteritis process. 2. Mild bibasilar atelectasis and/or pneumonia. 3. Hepatomegaly. 4. Mild colonic diverticulosis. 5. Moderate hiatal hernia. 6. Cholelithiasis. 7. Cystic lesion right ovary/adnexa measures 2.3 cm, considered enlarged in a postmenopausal patient . Recommend correlation with non-emergent pelvic ultrasound. 8. Small pericardial effusion. 9. Atherosclerosis. 10. Limited examination as described.
[2018-05-17] MEDS ORDERED: SODIUM CHLORIDE 1,000 ML IV STA (11:06)
[2018-05-17] MEDS ORDERED: SODIUM CHLORIDE 500 ML IV STA (11:06)
[2018-05-17] MEDS ORDERED: ACETAMINOPHEN 650 MG PO PRN (12:55)
[2018-05-17] MEDS ORDERED: LOPERAMIDE HCL 2 MG PO PRN (12:55)
[2018-05-17] MEDS ORDERED: DUONEB NEB PRN (12:55)
[2018-05-17] MEDS ORDERED: PHENERGAN SUPP RC PRN (12:55)
[2018-05-17] MEDS ORDERED: IMODIUM PO PRN (13:07)
[2018-05-17] MEDS ORDERED: TYLENOL PO PRN (13:08)
[2018-05-17 16:47] VITALS: BMI 20.5
[2018-05-17] MEDS ORDERED: NON-FORMULARY MEDICATION (Buspirone Hcl [Buspirone Hcl] 5 MG) PO SCH (21:00)
[2018-05-17] MEDS: BUSPAR PO SCH (21:28)
[2018-05-17] MEDS: GENTAK OPTH SOL OP SCH (21:28)
[2018-05-17] MEDS: ARICEPT PO SCH (21:29)
[2018-05-17] MEDS: NAMENDA PO SCH (21:30)
[2018-05-17] MEDS: DEXTROSE 5%-LR IV SOLUTION 1,000 ML IV SCH (21:34)
[2018-05-18] MEDS: CELEXA PO SCH (08:41)
[2018-05-18] MEDS: NAMENDA PO SCH ×2 (08:42→20:45)
[2018-05-18] MEDS: BUSPAR PO SCH ×2 (08:42→20:45)
[2018-05-18] MEDS ORDERED: NON-FORMULARY MEDICATION (Citalopram Hydrobromide [Celexa] 10 MG) PO SCH (09:00)
[2018-05-18] MEDS: DEXTROSE 5%-LR IV SOLUTION 1,000 ML IV SCH ×2 (09:55→23:19)
[2018-05-18] MEDS: ARICEPT PO SCH (20:45)
[2018-05-18] MEDS: GENTAK OPTH SOL OP SCH (20:51)
[2018-05-18] MEDS ORDERED: INFUVITE ADULT IV ONE (21:31)
[2018-05-18] MEDS: INFUVITE ADULT 10 ML in SODIUM CHLORIDE 1,000 ML IV SCH (21:41)
[2018-05-19] MEDS: NAMENDA PO SCH ×2 (10:05→21:14)
[2018-05-19] MEDS: CELEXA PO SCH (10:05)
[2018-05-19] MEDS: BUSPAR PO SCH ×2 (10:05→21:13)
[2018-05-19] MEDS ORDERED: INFUVITE ADULT IV ONE ×2 (10:16→21:45)
[2018-05-19] MEDS: INFUVITE ADULT 10 ML in SODIUM CHLORIDE 1,000 ML IV SCH ×2 (10:21→21:47)
[2018-05-19] MEDS: ARICEPT PO SCH (21:14)
[2018-05-19] MEDS: GENTAK OPTH SOL OP SCH (21:15)
[2018-05-20 06:06] VITALS: BP 156/77; TEMP 98.4
[2018-05-20] MEDS: CELEXA PO SCH (08:15)
[2018-05-20] MEDS: BUSPAR PO SCH (08:16)
[2018-05-20] MEDS: NAMENDA PO SCH (08:16)
--- NOTE | 2018-07-19 09:30 | DS ---
DATE OF SERVICE: 05/20/18 PATIENT IDENTIFICATION: 87-year-old female , resident of [facility] was sent to the emergency room because of acute episodes of vomiting and diarrhea early in the morning hours. The patient had four episodes of vomiting and six episodes of diarrhea. The patient was examined in the emergency room but the history was based upon the notes from the halfway. This patient is nonverbal and has advanced Alzheimer's. She also does not cooperate well with the examination. CBC was unremarkable. Normal WBC and normal hemoglobin and hematocrit. CMP also was unremarkable except for slightly elevated blood sugar 147 and repeat blood sugar on the third hospital day showed 93.3 and A1C 5.53. NT-Pro-BNP 355 which is normal for her age. Urinalysis is slightly abnormal. Urine culture was mixed growth. Clostridium difficile positive. The patient however had not had any vomiting nor diarrhea since admission. I had discussed this very well with her son, Kedar Richmond who decided not to treat her for now. Clostridium difficile was reported on 05/19/18. The MRSA screen is negative. The patient is a DNR. The patient was given a bolus of sodium chloride solution 1000 cc and continued on Normal Saline 1000 cc/100 cc hour. IV was later changed to 1/2 Saline 1000 cc plus MVI at 83 cc/hr. The patient did not eat very much dinner on 05/17/18, 5%. On 05/18 she refused to eat. The patient did not eat breakfast on 05/19, 20% at lunch and 20% at supper. This patient is incontinent of urine. She did have a bowel movement once on the day of admission, the second day and third day. Weight was more or less consistent. The patient on the day of discharge did eat 50% of breakfast. CBC on 05/19/18 showed essentially unchanged results. The monocyte has increased from 3.1 to 12.9. Electrolytes normal. BUN now 8.9 from 27.8 and EGFR is 95, creatinine 0.6. Influenza A antibody titer quantitative is 1:64 and the B is 1: 16. It had not been measured one year ago when she was admitted supposedly for influenza. A repeat titer for influenza A and B might be helpful but would not help the treatment so it is not likely to be repeated. The patient on discharge is continued on her previous medication. Tylenol treated only for pain not for fever. Buspar 5 mg twice a day, Celexa 10 mg daily , Donepezil 10 mg at bedtime, Gentamicin drops opthalmic, Duoneb one vial nebulizer times twice a day, Imodium A-D should be continued for now, was done as a p.r.n. Memantine 10 mg twice a day, Promethazine 25 mg rectal q.6hr should also not be continued. Will see how she does in the next few days. Aspercreme continued as needed. The previous medications expected to stop or medications way back in 2018. This patient had not been taking this medication anymore consisting of Keflex, Mucinex and Tessilon. The patient at discharge was alert but not oriented, nonverbal. She seemed to be better and cooperative somewhat with the examination. The face is symmetrical and equal with no cyanosis and no respiratory distress. Neck has no bruit. Chest is difficult to assess since the patient does not follow commands. Heart is normal sinus rhythm. Lungs - breath sounds occasionally audible. Lower extremities no tenderness. The diarrhea as well as vomiting had stopped. ASSESSMENT: 1. GASTROENTERITIS COULD BE VIRAL. 2. CLOSTRIDIUM DIFFICILE COLITIS POSITIVE. NOTE - THIS PATIENT HAS NOT BEEN TREATED FOR THE POSITIVE CLOSTRIDIUM DIFFICILE AND YET HER STOOLS HAVE STOPPED WELL THE VOMITING. I DO NOT BELIEVE THIS IS THE REASON FOR THE ACUTE GASTROENTERITIS. I HAD DISCUSSED THIS WITH THE SON, KEDAR, WHETHER WE TREATED OR NOT. I ALSO HAD DISCUSSED WITH HIM WITH REGARD TO THE FINDING OF A CYST IN THE RIGHT OVARY. I DID INFORM HIM THAT WE COULD PROCEED AND INVESTIGATE IT. FURTHER INVESTIGATION WOULD PROBABLY BE AN EXERCISE IN FUTILITY SINCE IT WOULD PROBABLY NOT BE REASONABLE TO SUBJECT HER TO SURGERY. HER POA IS [place]. HE HAS A BROTHER WHO LIVES OUT OF THE COUNTRY. 3. SENILE DEMENTIA, SEVERE. 4. PSYCHOSIS SECONDARY TO SENILE DEMENTIA MOST LIKELY DEHYDRATION, CORRECTED. PROGNOSIS: GUARDED. TIME SPENT: GREATER THAN 30 MINUTES MTDD
--- NOTE | 2018-07-19 10:36 | HP ---
DATE OF SERVICE: 05/17/18 CHIEF COMPLAINT: Vomiting and diarrhea. (The patient is not able to provide any history and the patient does not allow you to examine her thoroughly.) SOURCE OF HISTORY: [facility] notes and conversation with [facility] and emergency room notes. HISTORY OF PRESENT ILLNESS: The patient was noted to have episodes of vomiting and diarrhea early this morning and was then subsequently sent to the emergency room for evaluation. The patient's CBC showed normal WBC and normal HGB and HCT. Plt count is normal 234,000. Electrolytes slightly elevated Chloride but no clinical significance. BUN slightly elevated 27.8, creatinine 0.75, GFR 73. Blood sugar 147, Liver panel normal. NT PRO BNP normal 355. Total Protein and Albumin normal. Urinalysis abnormal 2+ blood, 2-5 RBC, 5-10 WBC. Squamous epithelium 10-[address] scan of the abdomen and pelvis without contrast showed findings with possible mild enteritis, mild stranding questionable left colon probably colitis with some fluid in the colon. Bibasilar atelectasis, hepatomegaly, Cholelithiasis, cystic lesion in the right ovary/adnexa 2.3cm considered enlarged in a postmenopausal state. CT done of the chest 04/25/17 showed minimal bibasilar atelectasis and or pneumonia and the patient then was admitted as a pneumonia. PAST PERSONAL HISTORY: She is not able to give any history. This is based on the records at the [facility] and the also the previous admission. The patient was seen in the emergency 04/25/17 because of what maybe a flu type of symptoms, leukotic fever , loose stools 6 were flushed. The patient was described has combative and yelling on arrival to the emergency room. She was admitted as a pneumonia however the CT findings were no strongly indicative of pneumonitis. The patient had been listed as having chronic kidney disease probably not significant since her GFR even with dehydration is 73. Her creatinine is normal. History of depression. History of Alzheimer's, history of recurrent falls and psychotic episodes. This probably is part of the Alzheimer's. The patient in April 25, 2017 had a negative Influenza A and B rapid. FAMILY HISTORY: Negative at this time. The patient is not able to provide and past records were not able to provide. SOCIAL HISTORY: The patient is a and has Alzheimer's, advanced and now residing at [facility]. Wether she smoked or not is unknown when she was young. MEDICATIONS: Phenergan Suppository 25mg Q 6 hour PRN Aricept 10mg daily at bedtime Namenda 10mg twice a day Imodium A-D 2mg capsule Q 4 hours PRN Gentak Opth Drops two drops to both eyes at bedtime Celexa 10mg daily Aspercreme 10% applied to the area every 4 hours as needed Buspar 5mg twice a day Tylenol 650mg Q 6 hours PRN DUONEB Nebulizer one vial twice a day ALLERGIES: No known drug allergies. REVIEW OF SYSTEMS: Focused on the previous history of Alzheimer's and the patient does not able to give any symptoms. This patient was sent from the [place] because of the vomiting and diarrhea. The patient had four episodes of vomiting and 6 episodes of diarrhea prior to the emergency room visit. PHYSICAL EXAMINATION: GENERAL: 87 year old female admitted to the hospital because of vomiting and diarrhea. The patient has some dehydration manifested as elevated BUN 27.8. Urinalysis specific gravity 10.25, Blood sugar was 147 on admission to the emergency room. The patient does not allow you to examine and her son confirmed that since his brother who came down to see her was a doctor also noted that his mother would not want to be examined at all. She is alert but not oriented and nonverbal. She is cyanotic and does not appear to be dyspneic or tachypneic. FACE: Symmetrical and equal with no facial weakness. NECK: No masses. No bruit. No tenderness. No rigidity. LUNGS: Difficult to assess. The patient does not take a deep breath. HEART: Audible and regular with good tones. No murmurs. ABDOMEN: No muscular guarding. Bowel sounds are active. LOWER EXTREMITIES: No significant edema. No ulceration. Pedal pulses are absent. UPPER EXTREMITIES: Symmetrical and equal. Good strength judging from the ways she tries to push her examining hand with stethoscope. ASSESSMENT: 1. Gastroenteritis, etiology undetermined 2. Senile dementia, advanced 3. Episode of psychosis 4. Mild Enterocolitis by CT scan of the abdomen and pelvis 5. Cystic lesion right ovary 2.3cm 6. Cholelithiasis by CT scan 7. Urine minimal microscopic hematuria PROGNOSIS: Guarded. TIME SPENT: GREATER THAN 65 MINUTES MTDD
--- NOTE | 2018-07-19 11:24 | PN ---
DATE OF SERVICE: 05/18/18 SUBJECTIVE: 87 year old female was admitted yesterday because of vomiting and diarrhea. The patient had one bowel movement and no further vomiting. Pulse on 05/18/18 at 2: 00pm was 70, blood pressure 118/60, respiratory rate 18. The patient weighted 112 pounds, 5'2 and BMI 20.5. The patient was incontinent of urine and did not eat anything from breakfast to supper. General appearance is some better. I talked to . Kedar Adi with regards to this mother. I did call him on the phone and also before the face to face meeting. I did tell him about the difficulties examining his mother. He told me also that was the behavior that she had with her son who is a doctor. ANA MARÍA
--- NOTE | 2018-07-19 11:28 | PN ---
DATE OF SERVICE: 05/19/18 SUBJECTIVE: The patient is alert but not oriented. She is somewhat cooperative today. Her Clostridium difficile was positive. Influenza A and B is still pending at this time. She did eat a little bit at lunch about 20% and supper 20%. No breakfast. Vital signs at 2:00pm 05/19/18 temperature 97 axiliary. That is the only vital signs recorded at 2:00. The blood pressure before that at 5:36am was 182/72 and at 9:58pm was 148/86. The pulse fluctuated between 61 to 83. Oxygen saturation 94% at room air. It was 95% yesterday. The Clostridium difficile was positive and reported today. No medication is given. I discussed this with relatives. ANA MARÍA
== END 2018-05-20 11:53 | DRG 392 ==
LOC: ED 07:39 → MEDSURG B 11:39
PROVIDERS: ADMIT General Practice; ATTEND General Practice
DX: A08.4 Viral intestinal infection, unspecified (principal); J98.11 Atelectasis; F03.91 Unspecified dementia, unspecified severity, with behavioral disturbance; F29 Unspecified psychosis not due to a substance or known physiological condition; E86.0 Dehydration; K52.9 Noninfective gastroenteritis and colitis, unspecified; G30.9 Alzheimer's disease, unspecified; B96.89 Other specified bacterial agents as the cause of diseases classified elsewhere; R11.10 Vomiting, unspecified; R50.9 Fever, unspecified; R53.1 Weakness
CPT/HCPCS: 36415; 80053; 81001; 83036; 83880; 85025; 86710; 87081; 87086; 87493; 96360; 96361; 97802; 99223; 99231; 99239; 99284

== ENCOUNTER 2018-05-21 15:39 | Outpatient (CLI) | END 2018-05-21 15:40 | disposition home or self-care (01) | LOC: NONPT 15:39 | PROVIDERS: ATTEND General Practice | DX: A04.72 Enterocolitis due to Clostridium difficile, not specified as recurrent (principal) | CPT/HCPCS: 87493 ==

== ENCOUNTER 2018-06-02 10:49 | Outpatient (CLI) | payer OTHER | END 2018-06-02 10:50 | disposition home or self-care (01) | LOC: NONPT 10:49 | PROVIDERS: ATTEND General Practice | DX: A04.72 Enterocolitis due to Clostridium difficile, not specified as recurrent (principal) | CPT/HCPCS: 87015; 87045; 87186; 87493; 87899 ==